=== PATIENT | male | born 1995 | race Caucasian/White ===

== ENCOUNTER 2020-09-30 08:08 | Inpatient (IN) | payer OTHER ==
[2020-09-30] VITALS (17 sets, daily range): BP systolic 95–144; BP diastolic 38–84
[~2020-09-30] VITALS: Ht 182.9 cm; Wt 116.4 kg
--- NOTE | 2020-09-30 08:10 | NUR ---
shaila from home, found passed out, unresponsive. 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 Patient unresponsive at this time. On 15lpm via NRB on arrival. Patient's eyes dilated. Placed immediately on a library monitor. Dr. Pereyra at bedside for eval.
[2020-09-30] MEDS ORDERED: NALOXONE PREFILLED SYRINGE 2 MG/2 ML SYRINGE ONE ×2 (08:13→11:16)
--- NOTE | 2020-09-30 08:21 | NUR ---
Patient became awake and alert, verbally responsive. Dr. Pereyra made aware.
[2020-09-30] MEDS ORDERED: ONDANSETRON HCL/PF 4 MG/2 ML VIAL ONE ×2 (08:26→10:15)
[2020-09-30 08:29] LABS: BASOPHILS # (AUTO) 0.1 /CMM (0.0-0.2); BASOPHILS % (AUTO) 0.8 % (0.0-2.0); HEMATOCRIT 41 % (39-51); HEMOGLOBIN 13.5 g/dL (13.5-17.5); LYMPHOCYTES # (AUTO) 3.9 /CMM (0.8-4.8); LYMPHOCYTES % (AUTO) 26.2 % (20.0-44.0); MEAN CORPUSCULAR HGB CONC 33 g/dl (31.0-36.0); MEAN CORPUSCULAR VOLUME 93 fL (80-96); MONOCYTES # (AUTO) 1.4 /CMM (0.1-1.30); MONOCYTES % (AUTO) 9.6 % (2.0-12.0); NEUTROPHILS # (AUTO) 9.4 /CMM (1.8-8.9); NEUTROPHILS % (AUTO) 62.4 % (43.0-81.0); PLATELET COUNT (AUTO) 456 /CMM (150-450)
[2020-09-30] MEDS ORDERED: NALOXONE HCL 0.4 MG/ML AMPUL IV ONE ×3 (08:30→11:30)
[2020-09-30] MEDS ORDERED: ONDANSETRON HCL/PF 4 MG/2 ML VIAL IVP ONE (08:30)
[2020-09-30] MEDS ORDERED: IV NS 0.9% 1,000 ML BAG IV ONE (08:30)
[2020-09-30 08:39] LABS: CALCIUM, SERUM 9.4 mg/dL (8.5-10.1); CARBON DIOXIDE 20 mmol/L (21-32); CHLORIDE 102 mmol/L (98-107); CREATININE 2.3 mg/dL (0.6-1.3); GLUCOSE 199 mg/dL (74-106); SODIUM SERUM 141 mmol/L (136-145); UREA NITROGEN, BLOOD 23 mg/dL (7-18)
[2020-09-30 08:44] LABS: ALANINE AMINOTRANSFERASE 205 U/L (12-78); ALBUMIN 4.4 g/dL (3.4-5.0); ALCOHOL, BLOOD < 3 mg/dL (0-0); ALKALINE PHOSPHATASE 101 U/L (46-116); ASPARTATE AMINOTRANSFERASE 188 U/L (15-37); BILIRUBIN,DIRECT 0.4 mg/dL (0.0-0.2)
[2020-09-30 08:45] LABS: ACETAMINOPHEN 0 ug/ml (10-30)
--- NOTE | 2020-09-30 09:23 | NUR ---
oxygen saturation at 93% with oxygen delivering at 5l/min via nasal cannula.
--- NOTE | 2020-09-30 09:56 | NUR ---
PATIENT CAME BACK FROM CT. HAS EPISODES OF NAUSE AND VOMITING X2.
[2020-09-30] MEDS ORDERED: ONDANSETRON HCL/PF - ER 4 MG/2 ML VIAL IV ONE (10:30)
[2020-09-30] MEDS ORDERED: NALOXONE HCL 0.4 MG/ML AMPUL ONE (10:31)
--- NOTE | 2020-09-30 10:35 | NUR ---
covid negative per lab
--- NOTE | 2020-09-30 10:35 | NUR ---
INCREASED DROWSINESS,MEDICATED ORDERED WITH (+) RESPONSE, EASILY AROUSABLE AND ASKING WHAT HAPPENED
--- NOTE | 2020-09-30 10:40 | NUR ---
Solar Sales Representative note: This SUPERVISOR [employer] met with Dr. Pereyra to discuss patient's case and need for consultation. Dr. Pereyra stated that patient will be admitted to the acute hospital. Solar Sales Representative to follow up with the patient while on the medical floor.
--- NOTE | 2020-09-30 11:26 | NUR ---
The patient is on 10L/min via simple mask to maintain oxygen saturation level WNL.
--- NOTE | 2020-09-30 12:04 | NUR ---
GOT BED 253
--- NOTE | 2020-09-30 12:04 | NUR ---
ROOM 253
--- NOTE | 2020-09-30 12:22 | NUR ---
REPORT GIVEN TO NURSE NAPIER FROM ICU
[2020-09-30] MEDS ORDERED: NALOXONE HCL 4 MG in IV NS 0.9% 240 ML IV PRN (12:30)
[2020-09-30] MEDS ORDERED: ACETAMINOPHEN 325 MG TABLET PO PRN (13:00)
[2020-09-30] MEDS ORDERED: ONDANSETRON HCL/PF 4 MG/2 ML VIAL IVP PRN (13:00)
[2020-09-30] MEDS ORDERED: MAG HYDROX/AL HYDROX/SIMETH 30 ML UDC PO PRN (13:00)
[2020-09-30] MEDS ORDERED: Z GUARD REMEDY 2 OZ OINT TP PRN (13:00)
[2020-09-30] MEDS ORDERED: ZOLPIDEM TARTRATE 5 MG TABLET PO PRN (13:00)
[2020-09-30] MEDS ORDERED: MAGNESIUM HYDROXIDE 30 ML UDC PO PRN (13:00)
[2020-09-30] MEDS ORDERED: IV NS 0.9% 1,000 ML IV PRN (13:00)
--- NOTE | 2020-09-30 13:00 | NUR ---
The patient is transfered to ICU per ACLS policy.
--- NOTE | 2020-09-30 13:00 | NUR ---
Inspector And Tester noted received patient from ER 25y/old male on Dx of acute hypoxia respiratory failure. patient awake, on and off sleeping. tele monitor shows SR100 , a/o x2/3 giving short answerers on questions. Patient on Narcan drip 4mg/hr, called pharmacy change dosage 0.25mg/hr, at right hand which is started on ER. Patient has Fx of left foot, according patient it happened couple of days ago splint on. patient was complaining of pain, and nausea, on o2- 3lnc, iv access on right hand g-18. bp 136/83, p-97, 02-100nc, t_99.1, R-26. Skin assessment done, intact, patient using urinal. No acute respiratory distress at this time. call light within to reach. Started ns at 100 ml/hr new order. call light within to reach. will monitoring.
--- NOTE | 2020-09-30 15:13 | NUR ---
RN NOTES PATIENT FULLY AWAKE, STOP NARCAN DRIP AT THIS TIME. URINATED 750ML, ASKING WATER. PATIENT CRYING BECAUSE STATE "REALLY I DO NOT REMEMBERED WHAT HAPPENED TO ME AND ASKIN LATS OF QUESTION". CALLED HOSPITALIST AND GET CLEAR LIQUID DIET TO ORDER. ORDER TAKEN AND CARRIED OUT.
--- NOTE | 2020-09-30 16:00 | NUR ---
RN NOTES PATIENTS FRIEND NEXT TO THE BED.PATIENT STABLE, NO ACUTE RESPIRATORY DISTRESS, ROOM AIR AT THIS TIME 93%.
--- NOTE | 2020-09-30 16:56 | NUR ---
rn notes patient noted planing AMA self, because he feel fine. Dr Garzon notified.
--- NOTE | 2020-09-30 18:30 | NUR ---
RN NOTES PATIENT WITHDRAWAL, NO ACUTE RESPIRATORY DISTRESS, PAIN ON LEFT ANKLE 3/10 ON PAIN SCALE. O2-3LNC. INFUSING NS AT 100ML/HR ON RIGHT HAND INTACT. PATIENT IRRITABLE EASILY. CALL LIGHT WITHIN TO REACH. ENDORSED ONCOMING NURSE FOLLOW PLAN OF CARE.
--- NOTE | 2020-09-30 19:15 | NUR ---
RECEIVED PT ON BED AWAKE MODERATE AGITATION NOTED,KEEP ON COMPLAINING THAT THE ROOM IS HOT AND STATED THAT HE IS FREAKING OUT, SOME =TIME HE IS TELLIGN THAT HE WANT TO GET OUT OF THE HOSPITAL,BUT AFTER A WHILE HE SAYS HE WILL STAY, ON O2 VIA NC 3L WITH SPO2 91-93% SINUS TACHY ON MONITOR, THERES A TIME THAT HE IS REMOVING THE MONITOR ON HIS CHEST ALSO THE PULSE OX, KEEP ON REMINDING HIM THAT WE NEED THT TO MONITOR HIM, HAVE RIGHT HAND # 18 IV WITH ONGOING NS @ 100ML/HR INFUSING WELL. PT IS EATING AND DRINKING JUICE WHEN WE DO A ROUND ON HIM, BED ON LOWEST POSITION AND LOCKED SIDE RAILS UP X 2 CALL LIGHT WITHIN REACH WILLCONT TO MONITOR
--- NOTE | 2020-09-30 20:49 | NUR ---
PT TALK TO THE NURSE AND STATED THAT HE DOES NOT WANT THE IV FLUID ANYMORE, EXPALIN RISK AND BENEFITS 3X BUT PT INSISTING THAT HE DOES NOT NEED THAT, STOP IV FLUID ASPER PT REQUEST, PT ALSO REMOVING THE MONITOR AND A BIT AGITATED KEEP REMINDING HIM THAT WE NEED THAT TO MONITOR HIM, AND HE ALLOW US TO PUT IT BACK BUT HE DOES NOT WANT THE BP CUFF ON HIS ARM WILL CONT TO MONITOR THE PATIENT
--- NOTE | 2020-09-30 21:58 | NUR ---
NOTICE THAT THE PT ALSO REMOVED HIS IV LINE ON RIGHT HAND I ASK WHY HE DO THAT HE SAID HE DOES NOT LIKE IT AND HE DOES NOT NEED IT, I EXPLAIN TO HIM THAT IT IS NEEDED WHILE HE WAS ON THE HOSPITAL,I ASK HIM THAT I NEED TO PUT ANOTHER ONE BUT HE REFUSED AND A LITTLE AGITATED, EXPLAIN RISK AND BENEFITS BUT HE IS REFUSING WILL TRY AGAIN WHEN HE CALM DOWN
[2020-09-30] MEDS ORDERED: LORAZEPAM INJ 2 MG/ML VIAL IV PRN (22:00)
[2020-09-30] MEDS: LORAZEPAM 1 MG TABLET PO PRN (22:56)
[2020-10-01] VITALS (12 sets, daily range): BP systolic 49–138; BP diastolic 26–82
--- NOTE | 2020-10-01 03:20 | NUR ---
PT REFUSEDTO PUT BACK HIS BP CUFF, RISK AND BENEFITSEXPLAINED X3 BUT PT STILL REFUSED AND HE SAID HE WANTS TO SLEEP ANDREST THAT MACHINE IS ANNOYING HIM
[2020-10-01 04:35] LABS: BASOPHILS % (AUTO) 0.4 % (0.0-2.0); EOSINOPHILS % (AUTO) 1.7 % (0.0-6.0); HEMATOCRIT 36 % (39-51); HEMOGLOBIN 12.2 g/dL (13.5-17.5); LYMPHOCYTES # (AUTO) 1.9 /CMM (0.8-4.8); MEAN CORPUSCULAR HGB CONC 34 g/dl (31.0-36.0); MEAN CORPUSCULAR VOLUME 92 fL (80-96); MONOCYTES # (AUTO) 0.6 /CMM (0.1-1.30); MONOCYTES % (AUTO) 5.7 % (2.0-12.0); NEUTROPHILS # (AUTO) 8.4 /CMM (1.8-8.9); NEUTROPHILS % (AUTO) 75.2 % (43.0-81.0); PLATELET COUNT (AUTO) 306 /CMM (150-450); RED BLOOD CELL COUNT(AUTO) 3.92 MIL/uL (4.5-6.0); WHITE BLOOD COUNT (AUTO) 11.1 K/uL (4.3-11.0)
[2020-10-01 04:44] LABS: CALCIUM, SERUM 8.6 mg/dL (8.5-10.1); CREATININE 1.1 mg/dL (0.6-1.3); MAGNESIUM 2.1 mg/dL (1.8-2.4); POTASSIUM 3.8 mmol/L (3.5-5.1)
[2020-10-01] MEDS: LORAZEPAM 1 MG TABLET PO PRN (04:51)
--- NOTE | 2020-10-01 06:51 | NUR ---
PT ON BED AWAKE MORE CALM NOW THAT LAST NIGHT, NO SIGN OF RESPIRATORY DISTRESS ON ROOM AIR DUE TO HE DOES NOT WANT THE O2 CANNULA SPO2 ON 90'S, ALL NEEDS ATTENDED, NO SIGNIFICANT CHANGES ON CONDITION NOTED, BED ON LOWEST POSITION AND LOCKED SIDE RAILS UP X 2 CALL LIGHT WITHIN REACH WILL ENDORSED TO AM SHIFT NURSE
--- NOTE | 2020-10-01 08:00 | NUR ---
RN NOTES RECEIVED PATIENT IN THE BED ON O2 2LNC- 89%L, NEED REDIRECTION , SEEN HOSPITALIST, AND D/C IV INFUSION, PATIENT WILL INCREASE FLUID INTAKE, , VSS. TEACH KEEP LEFT LEG ELEVATED PREVENT SWELLING. CALL LIGHT WITHIN TO REACH. WILL MONITORING.
--- NOTE | 2020-10-01 08:00 | NUR ---
RN NOTE S/E by Dr. Garzon, 85% sat on room air, placed on 2LPM via NC, 94%. Per MD, may transfer to Tele. Also patient refused for IV insertion, MD aware, encouraged patient to increase OFI.
--- NOTE | 2020-10-01 10:35 | NUR ---
SS Consult: household worker was called to evaluate this 25-year-old male who overdosed on Fentanyl & Cocaine. Patient was given Naxolone HCL via IV by Dr. Leonor Pereyra. This social services aide met with patient and provided him with referrals to : [facility]: [address] [place] [address] Intake hours: 5:45am9:00am, walk-ins Monday, Monday, [facility]: [address] [place] [address] Intake hours: 5:45am12:30pm, Monday and [facility]: [address] [place] [address] Intake hours: 8:00am2:00pm, Monday through Monday Patient refused referral to MAT programs. household worker provided support with motivational interviewing, education regarding opioid dependence, brief intervention and resources to treatment facilities. The pt. is alert& oriented x 4 and makes avoidant eye contact. The pt. remained calm & cooperative. Pt.s speech is WNL. Pt. is guarded & provided limited information. Patient s mood is WNL. Pt. denies SI/HI and denies hallucinations. Patient appears to be at the preparation phase of change with substance dependence. Patient denies being homeless. Patient states that he will return to his sober living facility ([facility] [id number] [place] [id number]; [phone]) he was residing at before he relapsed. Pt. stated he was sober for 4 months prior to this incident. Patient stated that he does not want to be in the hospital for much longer and that his friends or girlfriend may be able to pick him up. Patient refused to provide further details about previous Rehab/ Detox Treatment he has received for substance use. SW explored pt.s mental health Hx. Pt. stated he has been diagnosed with ADHA & Bipolar Disorder. Patient refused to disclose about his support system: family except Anibal Davis [phone]. household worker provided her desk number for patient to call if he needs additional support, resources or assistance. Report was given to RNDolores who expressed understanding. also provided the following resources: ADDICTION RESOURCES For Drugs and Alcohol [facility] Substance Abuse Helpline([facility])-[facility] Outpatient treatment, residential treatment, recovery support for youth and adults [facility] www.actionfamilycounselingWhoWanna [facility] Teen programs for drug/alcohol education and support [facility] [place]. Program for adults, sliding scale provides support and education Shyla idealista.com www.Questetra.Humansized [place]; Outpatient/residential treatment programs; transition to sober living Cri-Help www.cri-help.org [place]; Outpatient and residential treatment programs; transition to sober living I-ADARP [facility] Drug Abuse Recovery [address]; Outpatient education and supportive programs for teens and adults [facility] www.[facility].org [place]; Residential treatment and work program for females only [facility] www.[facility].org [place]: Outpatient/residential treatment program for teens and young adults [facility] www.[facility].org [place] Detox, inpatient, outpatient for adults and youth [facility], [facility]. [place]; Outpatient programs and referrals to community residential programs. Alcoholics Anonymous -SFV information and meeting and schedules www.aa-intergroup.org Uy-Jkhm-Mdznupp https://al-anon.org/ [place] support groups for family of alcoholics. Marijuana Anonymous www.madistrict6.org -SFV listing of meetings Narcotics Anonymous www.na.org SOBER LIVING RESOURCES [facility] www.soberhouCazoomig.net A non-profit agency that provides resources to recovery and sober living homes throughout [facility], [facility] Sober Living Homes: A Work in ProgressMarlon CabriAdvent[facility], [place] [facility] [address] [facility] So[facility] Living Homes: [facility] [phone] [place], [place] [facility] So[facility] Living Homes: [facility] Counseling--Outpatient [facility] [address] [facility] [place] [address] (Specializes in in-depth psychotherapy for emotional distress: anxiety, depression, interpersonal conflicts, life transitions, childhood abuse) [facility] [address] [place] [address] (Assist with solving problem marital difficulties, separation & divorce, aging parents, & grief, chronic & terminal illness) [facility] [address] [place] [address] (Deal with loss & grief, anxiety, marital difficulties) [facility]Mental Health Services [address] [facility] [address] [place] [address] (Provide in-home mental services to people who are incapable of leaving their homes) Organization for Needs of the Elderly Senior Service/Resource Center [address] [place] [address] [facility] [address] [place] [address] PSYCHIATRIC OUTPATIENT SERVICES [facility] Partial Hospitalization and Intensive Outpatient Program (Managed Care and [place] Only)[address] [facility] [phone] [facility] Partial Hospitalization and Outpatient [id number] [facility]. [address] [place], [place] [phone] [facility] Partial Hospitalization and Outpatient [id number] [facility]. [place], [place] [phone] [facility] Mental Health [place] [id number] [place], [place] [phone] [facility] [address] Partial Hospitalization and Outpatient [id number] Sam Mccabe, [phone] Crisis and Hotline Telephone Numbers 24-Hour service unless stated [place] Crisis Hotlines: Songdrop. Mental Health/Crisis Line........627.437.8624 Suicide Prevention Center (24 Hours).......580.688.8466 Suicide Prevention Crisis Center.......[phone] (24 Hours) Assaults Against Women Hotline.........303.564.5227 (24 Hours -- [facility]) Women and Children Crisis [facility]...........[phone] (24 Hours) Child Abuse Hotline............466.818.2724 [facility] Childrens Services [facility] (24 Hours)..........716.864.3119 Alcoholics Anonymous (24 Hours)..........419.681.9697 Cocaine Anonymous (24 Hours)............418.965.6476 Narcotics Anonymous (24 Hours)..........[phone] [place] [facility] [address] [place] [address] Mental Health Services Karlee Best [address] [place] [address] Services: Outpatient therapy for children, teens, young adults, adults, older adults, and families; Psychiatric services, medication support Crisis and Hotline Telephone Numbers 24-Hour service unless stated [place] Crisis Hotlines: ahoyDoc Mental Health/Crisis Line........445.482.4708 Suicide Prevention Center (24 Hours).......[phone] Suicide Prevention Crisis Center.......[phone] (24 Hours) Alcoholics Anonymous (24 Hours)..........248.280.2674 [place] Crisis Hotlines: Alcohol and Drug Helpline - Provides referrals to local facilities where adolescents and adults can seek help. Brief intervention. [facility] Helpline National [place] for [facility] Ill 3-504-326-EYKU National Youth Crisis Hotline [place] [facility]. Provides free information on specific disorders, referral directory to mental health providers, national directory of local mental health associations (M-F, 9-5 EST) National [place] of Mental Health Information Line: Provide sinformation and literature on mental illness by disorder-for professionals and general public.
--- NOTE | 2020-10-01 11:00 | NUR ---
rn notes PATIENT D/C ICU TO [facility] VIA CONTRACT MODELER WILL FOLLOW UP. PATIENT WILL TRANSFER ROOM 320 BED A.
--- NOTE | 2020-10-01 12:48 | NUR ---
rn notes patient o2-88 % without oxygen, and friend next to the bed make decision to go AMA. Patient state "I am going AMA to the detox on spring. Hospitalist Dr Garzon notified. Per Md patient not stable to d/c, explained patient , and noted he will think about it. will monitoring.
--- NOTE | 2020-10-01 13:15 | NUR ---
RN NOTES PATIENT MAKE FINAL DECISION AMA AT THIS TIME, SIGN AMA PAPERWORK. ESCORTED PATIENT TO THE LOBBY FOR SAFETY. PATIENT DESIGN TECHNICIAN VIA FRIEND.
== END 2020-10-01 13:15 | disposition left against medical advice (07) | DRG 917 ==
LOC: EDBD 08:10 → ER 08:10 → ICU 12:11 → TELE 10-01 11:01
PROVIDERS: ADMIT Family Medicine; ATTEND Family Medicine
DX: T40.411A Poisoning by fentanyl or fentanyl analogs, accidental (unintentional), initial encounter (principal); J96.01 Acute respiratory failure with hypoxia; N17.0 Acute kidney failure with tubular necrosis; G92 Toxic encephalopathy; E87.2 Acidosis; M62.82 Rhabdomyolysis; E66.2 Morbid (severe) obesity with alveolar hypoventilation; T40.5X1A Poisoning by cocaine, accidental (unintentional), initial encounter; Y92.009 Unspecified place in unspecified non-institutional (private) residence as the place of occurrence of the external cause; E86.9 Volume depletion, unspecified; E87.6 Hypokalemia; D72.829 Elevated white blood cell count, unspecified; R74.01 Elevation of levels of liver transaminase levels; E80.6 Other disorders of bilirubin metabolism; D47.3 Essential (hemorrhagic) thrombocythemia; F19.188 Other psychoactive substance abuse with other psychoactive substance-induced disorder; Z68.34 Body mass index [BMI] 34.0-34.9, adult; Z20.822 Contact with and (suspected) exposure to COVID-19
CPT/HCPCS: 36415; 70450-TC; 71045-TC; 80048-TC; 80061-TC; 80076-TC; 82550-TC; 82553; 82962-TC; 83605-TC; 83735-TC; 84100-TC; 84484-TC; 85025-TC; 85730-TC; 87081-TC; 93970-TC; C9803; G0378; G0480; J2310; J2405; J7030; J7050

== ENCOUNTER 2020-11-07 10:28 | Emergency (ER) | payer OTHER ==
[~2020-11-07] VITALS: Ht 180.3 cm; Wt 102.1 kg
--- NOTE | 2020-11-07 10:28 | NUR ---
PT BRISEYDARA 62 FROM [facility] C/O OVERDOSE ON METH AND LSD. PT IS AAOX1, NOT IN RESPIRATORY DSITRESS, HOOKED TO ROLLS MILL OPERATOR, KEPT RESTED AND COMFORTABLE. WILL CONTINUE TO MONITOR.
--- NOTE | 2020-11-07 10:46 | NUR ---
SEEN AND EXAMINED BY .
--- NOTE | 2020-11-07 11:07 | NUR ---
ER PHLEB AT BEDSIDE FOR BLOOD DRAW.
[2020-11-07] MEDS: IV NS 0.9% 1,000 ML BAG IV ONE ×2 (11:08→11:52)
--- NOTE | 2020-11-07 11:08 | NUR ---
PT UNCOOPERATIVE TO STAFF. REFUSING IV START AND BLOOD DRAW.
--- NOTE | 2020-11-07 11:48 | NUR ---
PIV INSERTED IN LHAND G#18, GOOD BLOOD RETURN NOTED AND FLUSHING WELL
[2020-11-07 11:49] LABS: BASOPHILS % (AUTO) 0.2 % (0.0-2.0); EOSINOPHILS % (AUTO) 0.1 % (0.0-6.0); HEMATOCRIT 43 % (39-51); HEMOGLOBIN 14.7 g/dL (13.5-17.5); LYMPHOCYTES # (AUTO) 0.8 K/uL (0.8-4.8); LYMPHOCYTES % (AUTO) 5.9 % (20.0-44.0); MEAN CORPUSCULAR HGB CONC 34 g/dl (31.0-36.0); MEAN CORPUSCULAR VOLUME 92 fL (80-96); MONOCYTES # (AUTO) 0.9 K/uL (0.1-1.30); MONOCYTES % (AUTO) 6.6 % (2.0-12.0); NEUTROPHILS # (AUTO) 11.7 K/uL (1.8-8.9); NEUTROPHILS % (AUTO) 87.2 % (43.0-81.0); PLATELET COUNT (AUTO) 323 K/uL (150-450); RED BLOOD CELL COUNT(AUTO) 4.69 MIL/uL (4.5-6.0); WHITE BLOOD COUNT (AUTO) 13.4 K/uL (4.3-11.0)
--- NOTE | 2020-11-07 11:49 | NUR ---
URINE AND BLOOD DRAW SEND TO LAB
[2020-11-07 11:58] LABS: CALCIUM, SERUM 9.4 mg/dL (8.5-10.1); CARBON DIOXIDE 23 mmol/L (21-32); CHLORIDE 103 mmol/L (98-107); GLUCOSE 119 mg/dL (74-106); POTASSIUM 3.8 mmol/L (3.5-5.1); SODIUM SERUM 139 mmol/L (136-145); UREA NITROGEN, BLOOD 13 mg/dL (7-18)
[2020-11-07 12:04] LABS: ACETAMINOPHEN 0 ug/ml (10-30); ALANINE AMINOTRANSFERASE 33 U/L (12-78); ALBUMIN 4.8 g/dL (3.4-5.0); ALCOHOL, BLOOD < 3 mg/dL (0-0); ALKALINE PHOSPHATASE 93 U/L (46-116); ASPARTATE AMINOTRANSFERASE 30 U/L (15-37); BILIRUBIN,DIRECT 0.3 mg/dL (0.0-0.2); BILIRUBIN,TOTAL 1.4 mg/dL (0.2-1.0); TOTAL PROTEIN, SERUM 8.3 g/dL (6.4-8.2)
--- NOTE | 2020-11-07 13:43 | NUR ---
IV removed. Catheter intact and site benign. Pressure and 4x4 applied to site. No bleeding noted. Patient discharged to home in stable condition. Written and verbal after care instructions given. Patient verbalizes understanding of instruction.
[2020-11-07 13:44] VITALS: BP 125/72
== END 2020-11-07 13:45 | disposition home or self-care (01) ==
LOC: ER 10:31
DX: F19.10 Other psychoactive substance abuse, uncomplicated (principal); R41.0 Disorientation, unspecified; T40.8X1A Poisoning by lysergide [LSD], accidental (unintentional), initial encounter; F13.10 Sedative, hypnotic or anxiolytic abuse, uncomplicated; F15.10 Other stimulant abuse, uncomplicated; F14.10 Cocaine abuse, uncomplicated; F12.10 Cannabis abuse, uncomplicated; Y92.89 Other specified places as the place of occurrence of the external cause
CPT/HCPCS: 36415; 80048; 80076; 80143; 80307; 80320; 85025; 96360; 99283; J7030; G0480